=== PATIENT | female | born 1950 ===

== ENCOUNTER 2018-01-09 18:07 | Inpatient (IN) ==
[2018-01-09] MEDS ORDERED: HYDROmorphone 2 MG/1 ML VIAL IV STA (19:10)
[2018-01-09] MEDS ORDERED: ONDANSETRON 4 MG/2 ML VIAL IV STA (19:10)
[2018-01-09] MEDS ORDERED: MORPHINE 2 MG/1 ML SYRINGE IV STA (19:13)
[2018-01-09] MEDS ORDERED: ONDANSETRON 4 MG/2 ML VIAL ONE (19:59)
[2018-01-09] MEDS ORDERED: MORPHINE 2 MG/1 ML SYRINGE ONE (19:59)
[2018-01-09] MEDS ORDERED: HYDROmorphone 2 MG/1 ML VIAL IV PRN (20:18)
[2018-01-09] MEDS ORDERED: ONDANSETRON 4 MG/2 ML VIAL IV PRN (20:19)
[2018-01-09] MEDS ORDERED: SODIUM CHLORIDE 0.45% 1,000 ML IV SCH (20:30)
[2018-01-09] MEDS ORDERED: GLUCAGON 1 MG VIAL IM PRN (20:52)
[2018-01-09] MEDS ORDERED: DEXTROSE 50% 25 GM/50 ML VIAL IV PRN (20:52)
[2018-01-09] MEDS: SODIUM CHLORIDE 0.45% 1,000 ML IV SCH (22:19)
[2018-01-09] MEDS: INSULIN REGULAR 100 UNIT/ML SUBCUT SCH (22:20)
[2018-01-09] MEDS: PIPERACILLIN/TAZOBACTAM 3,375 MG in SODIUM CHLORIDE 0.9% 100 ML IV SCH (22:24)
[2018-01-09 23:17] LABS: Basophils % 0.1 % (0.0-0.8); Hemoglobin 12.4 GM/DL (12.0-16.0); Immature Granulocytes % 0.4 %; Immature Granulocytes Absolute 0.03 #; Lymphocytes # 1.3 10*3/uL (1.4-4.0); Lymphocytes % 15.9 % (21.3-54.2); Mean Corpuscular HGB Conc 33.5 GM/DL (32-36); Mean Corpuscular Hemoglobin 27 PG (27-34); Mean Corpuscular Volume 81.7 FL (87-102); Mean Platelet Volume 10.4 FL (9.6-12.0); Monocytes # 0.4 10*3/uL (0.11-0.8); Monocytes % 5.5 % (1.7-12.7); Neutrophils # 6.1 10*3/uL (1.4-7.4); Neutrophils % 78.1 % (38.7-73.9); Platelet Count 159 T/CUMM (130-400); Red Blood Count 4.53 MC/CUMM (3.8-5.5); Red Cell Distribution Width 13.6 % (9.3-17.3); White Blood Count 7.9 T/CUMM (4-12)
[2018-01-10] MEDS: PIPERACILLIN/TAZOBACTAM 3,375 MG in SODIUM CHLORIDE 0.9% 100 ML IV SCH ×3 (05:46→23:59)
[2018-01-10 06:45] LABS: Basophils % 0.2 % (0.0-0.8); Eosinophils % 0.2 % (0.00-10.9); Hematocrit 37.1 VOL% (35.7-47.0); Immature Granulocytes % 0.6 %; Immature Granulocytes Absolute 0.04 #; Lymphocytes # 1.3 10*3/uL (1.4-4.0); Lymphocytes % 19.1 % (21.3-54.2); Mean Corpuscular HGB Conc 32.3 GM/DL (32-36); Mean Corpuscular Hemoglobin 27 PG (27-34); Mean Corpuscular Volume 83.9 FL (87-102); Mean Platelet Volume 10.3 FL (9.6-12.0); Monocytes # 0.4 10*3/uL (0.11-0.8); Monocytes % 5.6 % (1.7-12.7); Neutrophils # 4.9 10*3/uL (1.4-7.4); Neutrophils % 74.3 % (38.7-73.9); Platelet Count 145 T/CUMM (130-400); Red Blood Count 4.42 MC/CUMM (3.8-5.5); Red Cell Distribution Width 13.6 % (9.3-17.3); White Blood Count 6.6 T/CUMM (4-12)
[2018-01-10 07:24] LABS: Albumin 3.1 G/DL (3.4-5.0); Bilirubin,Total 1.7 MG/DL (0.2-1.0); Calcium 8.3 MG/DL (8.5-10.1); Osmolality,Calculated 286.8 MOS/KG (273-304); Potassium 3.2 MMOL/L (3.5-5.1); Risk Ratio 2.78; Total Protein 6.4 G/DL (6.4-8.3); VLDL CHOLESTEROL 12.4 MG/DL
[2018-01-10] MEDS: INSULIN REGULAR 100 UNIT/ML SUBCUT SCH ×4 (08:39→22:25)
[2018-01-10] MEDS: CALCIUM (CARBONATE)/VITAMIN D 600 MG-400 UNIT TABLET PO SCH ×2 (09:22→21:59)
[2018-01-10] MEDS: ASPIRIN EC 81 MG TABLET PO SCH (09:22)
[2018-01-10] MEDS: CARVEDILOL 6.25 MG TABLET PO SCH ×2 (09:22→21:59)
[2018-01-10] MEDS: LOSARTAN 25 MG TABLET PO SCH (09:23)
[2018-01-10] MEDS: GABAPENTIN 100 MG CAPSULE PO SCH ×3 (09:23→21:59)
[2018-01-10 09:24] LABS: Troponin I Only < 0.015 NG/ML (0.00-0.045)
[2018-01-10] MEDS: ENOXAPARIN 40 MG/0.4 ML SYRINGE SUBCUT SCH (09:27)
[2018-01-10] MEDS: PANTOPRAZOLE 40 MG VIAL IV SCH (09:28)
[2018-01-10] MEDS: FUROSEMIDE 40 MG/4 ML VIAL IV SCH (09:28)
[2018-01-10] MEDS: POTASSIUM CHLORIDE 20 MEQ TABLET PO PRN ×4 (09:41→16:32)
[2018-01-10] MEDS: SIMVASTATIN 10 MG TABLET PO SCH (21:59)
[2018-01-11 05:33] LABS: Basophils % 0.2 % (0.0-0.8); Eosinophils % 0.7 % (0.00-10.9); Hematocrit 34.5 VOL% (35.7-47.0); Hemoglobin 11.2 GM/DL (12.0-16.0); Immature Granulocytes % 0.4 %; Immature Granulocytes Absolute 0.02 #; Lymphocytes # 1.2 10*3/uL (1.4-4.0); Lymphocytes % 22.4 % (21.3-54.2); Mean Corpuscular HGB Conc 32.5 GM/DL (32-36); Mean Corpuscular Hemoglobin 28 PG (27-34); Mean Platelet Volume 10.6 FL (9.6-12.0); Monocytes # 0.4 10*3/uL (0.11-0.8); Monocytes % 6.9 % (1.7-12.7); Neutrophils # 3.7 10*3/uL (1.4-7.4); Neutrophils % 69.4 % (38.7-73.9); Platelet Count 138 T/CUMM (130-400); Red Blood Count 4.06 MC/CUMM (3.8-5.5); Red Cell Distribution Width 13.5 % (9.3-17.3); White Blood Count 5.4 T/CUMM (4-12)
[2018-01-11 06:05] LABS: Albumin 2.7 G/DL (3.4-5.0); Calcium 8.1 MG/DL (8.5-10.1); Osmolality,Calculated 282.1 MOS/KG (273-304); Potassium 4.1 MMOL/L (3.5-5.1); Total Protein 5.7 G/DL (6.4-8.3)
[2018-01-11] MEDS: PIPERACILLIN/TAZOBACTAM 3,375 MG in SODIUM CHLORIDE 0.9% 100 ML IV SCH ×3 (06:06→22:57)
[2018-01-11] MEDS ORDERED: cefOXitin 2,000 MG in SYRINGE 1 EACH IV ONE (07:23)
[2018-01-11] MEDS: LOSARTAN 25 MG TABLET PO SCH (09:08)
[2018-01-11] MEDS: CARVEDILOL 6.25 MG TABLET PO SCH ×2 (09:10→21:48)
[2018-01-11] MEDS: PANTOPRAZOLE 40 MG VIAL IV SCH (09:11)
[2018-01-11] MEDS: ENOXAPARIN 40 MG/0.4 ML SYRINGE SUBCUT SCH (09:14)
[2018-01-11] MEDS: methIMAzole 5 MG TABLET PO SCH ×3 (09:15→21:49)
[2018-01-11] MEDS: INSULIN REGULAR 100 UNIT/ML SUBCUT SCH ×4 (09:15→21:58)
[2018-01-11] MEDS: ASPIRIN EC 81 MG TABLET PO SCH (09:15)
[2018-01-11] MEDS: GABAPENTIN 100 MG CAPSULE PO SCH ×3 (09:15→21:48)
[2018-01-11] MEDS ORDERED: LIDOCAINE 1%/EPI INJ 20 ML VIAL ONE (10:08)
[2018-01-11] MEDS ORDERED: TISSUE ADHESIVE 1 EACH APPLICATOR TOP ONE (10:08)
[2018-01-11] MEDS ORDERED: fentaNYL 100 MCG/2 ML VIAL ONE (11:55)
[2018-01-11] MEDS ORDERED: PROPOFOL 200 MG/20 ML VIAL IV ONE (11:55)
[2018-01-11] MEDS ORDERED: MIDAZOLAM 2 MG/2 ML VIAL ONE (11:55)
[2018-01-11] MEDS ORDERED: ONDANSETRON 4 MG/2 ML VIAL ONE (11:55)
[2018-01-11] MEDS ORDERED: SEVOFLURANE 1 UNIT/15 MINUTE INH ONE (11:55)
[2018-01-11] MEDS ORDERED: NEOSTIGMINE 10 MG/10 ML VIAL ONE (11:56)
[2018-01-11] MEDS ORDERED: GLYCOPYRROLATE 0.4 MG/2 ML VIAL ONE (11:56)
[2018-01-11] MEDS ORDERED: ROCURONIUM 100 MG/10 ML VIAL IV ONE (11:56)
[2018-01-11] MEDS ORDERED: MORPHINE 10 MG/1 ML VIAL ONE (12:01)
[2018-01-11] MEDS: MORPHINE 10 MG/1 ML VIAL IV PRN ×2 (12:02→12:07)
[2018-01-11] MEDS: SODIUM CHLORIDE 0.45% 1,000 ML IV SCH ×2 (16:13→16:19)
[2018-01-11] MEDS: FUROSEMIDE 40 MG/4 ML VIAL IV SCH (16:21)
[2018-01-11] MEDS: MORPHINE 2 MG/1 ML SYRINGE IV PRN ×2 (16:40→21:49)
[2018-01-11] MEDS: CALCIUM (CARBONATE)/VITAMIN D 600 MG-400 UNIT TABLET PO SCH ×2 (19:33→21:49)
[2018-01-11] MEDS: SIMVASTATIN 10 MG TABLET PO SCH (21:48)
[2018-01-12] MEDS: SODIUM CHLORIDE 0.45% 1,000 ML IV SCH ×3 (03:08→09:06)
[2018-01-12] MEDS: PIPERACILLIN/TAZOBACTAM 3,375 MG in SODIUM CHLORIDE 0.9% 100 ML IV SCH ×3 (05:06→22:33)
[2018-01-12 06:01] LABS: Basophils % 0.3 % (0.0-0.8); Eosinophils % 0.1 % (0.00-10.9); Hematocrit 34.8 VOL% (35.7-47.0); Hemoglobin 11.5 GM/DL (12.0-16.0); Immature Granulocytes % 0.3 %; Immature Granulocytes Absolute 0.02 #; Lymphocytes # 1.3 10*3/uL (1.4-4.0); Lymphocytes % 18.3 % (21.3-54.2); Mean Corpuscular Hemoglobin 28 PG (27-34); Mean Corpuscular Volume 83.9 FL (87-102); Mean Platelet Volume 10.8 FL (9.6-12.0); Monocytes # 0.6 10*3/uL (0.11-0.8); Monocytes % 8.6 % (1.7-12.7); Neutrophils # 5.1 10*3/uL (1.4-7.4); Neutrophils % 72.4 % (38.7-73.9); Platelet Count 132 T/CUMM (130-400); Red Blood Count 4.15 MC/CUMM (3.8-5.5); Red Cell Distribution Width 13.6 % (9.3-17.3)
[2018-01-12 06:07] LABS: Albumin 2.5 G/DL (3.4-5.0); Bilirubin,Total 1.7 MG/DL (0.2-1.0); Calcium 7.3 MG/DL (8.5-10.1); Osmolality,Calculated 275.7 MOS/KG (273-304); Potassium 3.8 MMOL/L (3.5-5.1); Total Protein 5.5 G/DL (6.4-8.3)
[2018-01-12 06:55] LABS: INR 1.1; PT Patient Result 11.9 SECS
[2018-01-12] MEDS: INSULIN REGULAR 100 UNIT/ML SUBCUT SCH ×4 (08:10→21:09)
[2018-01-12] MEDS: LOSARTAN 25 MG TABLET PO SCH (08:59)
[2018-01-12] MEDS: CARVEDILOL 6.25 MG TABLET PO SCH ×2 (08:59→21:16)
[2018-01-12] MEDS: PANTOPRAZOLE 40 MG VIAL IV SCH (09:00)
[2018-01-12] MEDS: FUROSEMIDE 40 MG/4 ML VIAL IV SCH (09:02)
[2018-01-12] MEDS: GABAPENTIN 100 MG CAPSULE PO SCH ×3 (09:06→21:16)
[2018-01-12] MEDS: CALCIUM (CARBONATE)/VITAMIN D 600 MG-400 UNIT TABLET PO SCH ×2 (09:06→21:16)
[2018-01-12] MEDS: ASPIRIN EC 81 MG TABLET PO SCH (09:06)
[2018-01-12] MEDS: methIMAzole 5 MG TABLET PO SCH ×3 (09:06→21:16)
[2018-01-12] MEDS: SIMVASTATIN 10 MG TABLET PO SCH (21:16)
[2018-01-13 05:41] LABS: Basophils % 0.2 % (0.0-0.8); Eosinophils % 0.7 % (0.00-10.9); Hematocrit 33.3 VOL% (35.7-47.0); Immature Granulocytes % 0.4 %; Immature Granulocytes Absolute 0.02 #; Lymphocytes # 1.4 10*3/uL (1.4-4.0); Lymphocytes % 24.1 % (21.3-54.2); Mean Corpuscular Hemoglobin 27 PG (27-34); Mean Corpuscular Volume 82.8 FL (87-102); Mean Platelet Volume 11.3 FL (9.6-12.0); Monocytes # 0.5 10*3/uL (0.11-0.8); Monocytes % 8.8 % (1.7-12.7); Neutrophils # 3.7 10*3/uL (1.4-7.4); Neutrophils % 65.8 % (38.7-73.9); Platelet Count 127 T/CUMM (130-400); Red Blood Count 4.02 MC/CUMM (3.8-5.5); Red Cell Distribution Width 13.2 % (9.3-17.3); White Blood Count 5.6 T/CUMM (4-12)
[2018-01-13] MEDS: PIPERACILLIN/TAZOBACTAM 3,375 MG in SODIUM CHLORIDE 0.9% 100 ML IV SCH ×2 (06:11→14:30)
[2018-01-13 06:29] LABS: Albumin 2.3 G/DL (3.4-5.0); Bilirubin,Total 1.5 MG/DL (0.2-1.0); Calcium 7.3 MG/DL (8.5-10.1); Osmolality,Calculated 281.1 MOS/KG (273-304); Potassium 3.6 MMOL/L (3.5-5.1); Total Protein 5.5 G/DL (6.4-8.3)
[2018-01-13] MEDS: PANTOPRAZOLE 40 MG VIAL IV SCH (08:04)
[2018-01-13] MEDS: FUROSEMIDE 40 MG/4 ML VIAL IV SCH (08:06)
[2018-01-13] MEDS: CALCIUM (CARBONATE)/VITAMIN D 600 MG-400 UNIT TABLET PO SCH (08:12)
[2018-01-13] MEDS: methIMAzole 5 MG TABLET PO SCH (08:12)
[2018-01-13] MEDS: GABAPENTIN 100 MG CAPSULE PO SCH ×2 (08:12→15:22)
[2018-01-13] MEDS: LOSARTAN 25 MG TABLET PO SCH (08:12)
[2018-01-13] MEDS: CARVEDILOL 6.25 MG TABLET PO SCH (08:13)
[2018-01-13] MEDS: ASPIRIN EC 81 MG TABLET PO SCH (08:13)
[2018-01-13] MEDS: INSULIN REGULAR 100 UNIT/ML SUBCUT SCH ×2 (08:14→11:30)
[2018-01-13] MEDS ORDERED: methIMAzole 5 MG TABLET PO SCH (10:40)
[2018-01-13 12:21] VITALS: BP 159/71
[2018-01-13] MEDS ORDERED: PROPOFOL 200 MG/20 ML VIAL IV ONE (14:50)
[2018-01-13] MEDS ORDERED: ONDANSETRON 4 MG/2 ML VIAL ONE (14:50)
[2018-01-13] MEDS ORDERED: SUCCINYLCHOLINE 200 MG/10 ML VIAL ONE (14:50)
[2018-01-13] MEDS ORDERED: LIDOCAINE 100 MG/5 ML SYRINGE ONE (14:50)
== END 2018-01-13 15:50 | disposition home or self-care (01) | DRG 417 ==
LOC: EDBD → EDUNIT# → N.ED 18:07 → N.EDINP 20:10 → N.3E 21:34
PROVIDERS: ADMIT Hospitalist; ATTEND Hospitalist
PROC: LAPCHOL (2018-01-11 10:35)
PROC: ERCPWSP (ICD-10-PCS; 2018-01-12 13:05)

== ENCOUNTER 2019-05-03 12:50 | Inpatient (IN) ==
[2019-05-03] MEDS ORDERED: cefOXitin 2,000 MG in SYRINGE 1 EACH IV ONE (13:48)
[2019-05-03] MEDS ORDERED: HYDROmorphone 2 MG/1 ML VIAL IV PRN ×2 (13:49)
[2019-05-03] MEDS ORDERED: KETOROLAC 10 MG TABLET PO PRN (13:49)
[2019-05-03] MEDS ORDERED: BISACODYL 5 MG TABLET PO PRN (13:49)
[2019-05-03] MEDS ORDERED: ACETAMINOPHEN 325 MG TABLET PO PRN (13:49)
[2019-05-03] MEDS ORDERED: GLUCAGON 1 MG VIAL IM PRN ×2 (13:52→18:19)
[2019-05-03] MEDS ORDERED: DEXTROSE 50% 25 GM/50 ML VIAL IV PRN ×2 (13:52→18:19)
[2019-05-03] MEDS ORDERED: BUPIVACAINE MPF 0.25% /EPI 30 ML VIAL ONE (15:06)
[2019-05-03] MEDS ORDERED: TISSUE ADHESIVE 1 EACH APPLICATOR TOP ONE (15:06)
[2019-05-03] MEDS ORDERED: LIDOCAINE 1%/EPI INJ 20 ML VIAL ONE (15:06)
[2019-05-03] MEDS ORDERED: DESFLURANE 1 UNIT/15 MINUTE INH ONE (17:11)
[2019-05-03] MEDS ORDERED: SUCCINYLCHOLINE 200 MG/10 ML VIAL ONE (17:12)
[2019-05-03] MEDS ORDERED: PHENYLEPHRINE 1 MG/10 ML SYRINGE IV ONE (17:12)
[2019-05-03] MEDS ORDERED: ONDANSETRON 4 MG/2 ML VIAL ONE (17:12)
[2019-05-03] MEDS ORDERED: ETOMIDATE 40 MG/20 ML VIAL IV ONE (17:12)
[2019-05-03] MEDS ORDERED: fentaNYL 100 MCG/2 ML VIAL ONE (17:12)
[2019-05-03] MEDS ORDERED: GLYCOPYRROLATE 0.4 MG/2 ML VIAL ONE (17:12)
[2019-05-03] MEDS ORDERED: ROCURONIUM 100 MG/10 ML VIAL IV ONE (17:12)
[2019-05-03] MEDS ORDERED: NEOSTIGMINE 10 MG/10 ML VIAL ONE (17:12)
[2019-05-03] MEDS ORDERED: hydrALAZINE 20 MG/1 ML VIAL IV PRN (17:36)
[2019-05-03] MEDS ORDERED: hydrALAZINE 20 MG/1 ML VIAL ONE (17:40)
[2019-05-03] MEDS: LACTATED RINGERS 1,000 ML IV SCH (17:57)
[2019-05-03] MEDS: INSULIN LISPRO 100 UNIT/ML SUBCUT SCH (18:09)
[2019-05-03 19:12] LABS: Apearance,Urine CLEAR (Clear); Bilirubin,Urine Negative (Negative); Blood, Urine Small mg/dL (Negative); Glucose,Urine (UA) >=500 mg/dL (Negative); Ketones,Urine Negative (Negative); Mucus,Urine Occasional /LPF (Occasional); Nitrite,Urine Negative (Negative); Protein,Urine 100 MG/DL; RBC,Urine 2 /HPF (0-4); Squamous Epithelial Cell,Urine Occasional /HPF (0-10); Urine Color Yellow (Yellow); Urine Urobilinogen < 2.0 EU/DL (0.2-1.0); WBC,Urine 2 /HPF (0-6)
[2019-05-03] MEDS: cefOXitin 2,000 MG in SYRINGE 1 EACH IV SCH (21:57)
[2019-05-03] MEDS: CARVEDILOL 6.25 MG TABLET PO SCH (21:57)
[2019-05-04] MEDS: LACTATED RINGERS 1,000 ML IV SCH ×4 (02:08→21:56)
[2019-05-04 04:34] LABS: Basophils % 0.1 % (0.0-0.8); Hematocrit 37.4 VOL% (35.7-47.0); Hemoglobin 11.9 GM/DL (12.0-16.0); Immature Granulocytes % 0.3 %; Immature Granulocytes Absolute 0.03 #; Lymphocytes # 1.1 10*3/uL (1.4-4.0); Lymphocytes % 12.3 % (21.3-54.2); Mean Corpuscular HGB Conc 31.8 GM/DL (32-36); Mean Corpuscular Volume 88.2 FL (87-102); Mean Platelet Volume 10.9 FL (9.6-12.0); Monocytes % 4.5 % (1.7-12.7); Neutrophils % 82.8 % (38.7-73.9); Platelet Count 108 T/CUMM (130-400); Red Blood Count 4.24 MC/CUMM (3.8-5.5); Red Cell Distribution Width 14.7 % (9.3-17.3); White Blood Count 9.2 T/CUMM (4-12)
[2019-05-04 04:57] LABS: Albumin 2.5 G/DL (3.4-5.0); Bilirubin,Total 1.4 MG/DL (0.2-1.0); Calcium 7.8 MG/DL (8.5-10.1); Osmolality,Calculated 285.1 MOS/KG (273-304); Total Protein 6.2 G/DL (6.4-8.3)
[2019-05-04] MEDS: cefOXitin 2,000 MG in SYRINGE 1 EACH IV SCH ×3 (06:53→22:00)
[2019-05-04] MEDS ORDERED: MAGNESIUM SULF RIDER 2 GM in PREMIX 1 EACH IV ONE (07:29)
[2019-05-04] MEDS: POTASSIUM CHLORIDE RIDER 10 MEQ in PREMIX 1 EACH IV SCH ×4 (08:36→13:35)
[2019-05-04] MEDS: PANTOPRAZOLE 40 MG TABLET PO SCH (08:41)
[2019-05-04] MEDS: CARVEDILOL 6.25 MG TABLET PO SCH ×2 (08:41→20:38)
[2019-05-04] MEDS: LOSARTAN 25 MG TABLET PO SCH (08:41)
[2019-05-04] MEDS: INSULIN LISPRO 100 UNIT/ML SUBCUT SCH ×3 (08:46→16:17)
[2019-05-05] MEDS: cefOXitin 2,000 MG in SYRINGE 1 EACH IV SCH ×3 (05:21→21:59)
[2019-05-05] MEDS: LACTATED RINGERS 1,000 ML IV SCH (05:23)
[2019-05-05 05:36] LABS: Calcium 8.1 MG/DL (8.5-10.1); Osmolality,Calculated 281.4 MOS/KG (273-304)
[2019-05-05 05:50] LABS: Basophils % 0.1 % (0.0-0.8); Eosinophils % 0.4 % (0.00-10.9); Hematocrit 35.8 VOL% (35.7-47.0); Hemoglobin 11.6 GM/DL (12.0-16.0); Immature Granulocytes % 0.4 %; Immature Granulocytes Absolute 0.03 #; Lymphocytes # 0.8 10*3/uL (1.4-4.0); Lymphocytes % 10.6 % (21.3-54.2); Mean Corpuscular HGB Conc 32.4 GM/DL (32-36); Mean Corpuscular Volume 87.3 FL (87-102); Mean Platelet Volume 11.2 FL (9.6-12.0); Neutrophils % 83.5 % (38.7-73.9); Platelet Count 91 T/CUMM (130-400); Red Cell Distribution Width 14.6 % (9.3-17.3); White Blood Count 7.7 T/CUMM (4-12)
[2019-05-05] MEDS: INSULIN LISPRO 100 UNIT/ML SUBCUT SCH ×3 (07:39→16:10)
[2019-05-05] MEDS: PANTOPRAZOLE 40 MG TABLET PO SCH (08:14)
[2019-05-05] MEDS: CARVEDILOL 6.25 MG TABLET PO SCH ×2 (08:14→22:00)
[2019-05-05] MEDS: LOSARTAN 25 MG TABLET PO SCH (08:14)
[2019-05-06] MEDS: ONDANSETRON 4 MG/2 ML VIAL IV PRN ×3 (03:08→15:34)
[2019-05-06] MEDS: cefOXitin 2,000 MG in SYRINGE 1 EACH IV SCH ×3 (07:49→21:40)
[2019-05-06] MEDS: INSULIN LISPRO 100 UNIT/ML SUBCUT SCH ×3 (08:00→18:44)
[2019-05-06] MEDS: LOSARTAN 25 MG TABLET PO SCH (09:25)
[2019-05-06] MEDS: PANTOPRAZOLE 40 MG TABLET PO SCH (09:25)
[2019-05-06] MEDS: CARVEDILOL 6.25 MG TABLET PO SCH ×2 (09:25→20:49)
[2019-05-06] MEDS: LACTATED RINGERS 1,000 ML IV SCH ×3 (13:02→13:15)
[2019-05-06] MEDS: DOCUSATE/SENNA 50-8.6 MG TABLET PO SCH ×2 (15:35→20:49)
[2019-05-06] MEDS: METOCLOPRAMIDE 10 MG/2 ML VIAL IV SCH ×2 (16:59→20:50)
[2019-05-06] MEDS: DEXTROSE 5% NACL 0.45% 1,000 ML IV SCH (20:50)
[2019-05-07] MEDS: LACTATED RINGERS 1,000 ML IV SCH (02:10)
[2019-05-07 05:28] LABS: Basophils % 0.3 % (0.0-0.8); Eosinophils # 0.1 10*3/uL (0.0-0.87); Hematocrit 40.4 VOL% (35.7-47.0); Hemoglobin 13.1 GM/DL (12.0-16.0); Immature Granulocytes % 0.4 %; Immature Granulocytes Absolute 0.03 #; Lymphocytes # 1.1 10*3/uL (1.4-4.0); Lymphocytes % 15.8 % (21.3-54.2); Mean Corpuscular HGB Conc 32.4 GM/DL (32-36); Mean Corpuscular Volume 86.3 FL (87-102); Mean Platelet Volume 10.3 FL (9.6-12.0); Monocytes % 11.4 % (1.7-12.7); Neutrophils % 71.1 % (38.7-73.9); Platelet Count 170 T/CUMM (130-400); Red Blood Count 4.68 MC/CUMM (3.8-5.5); White Blood Count 6.7 T/CUMM (4-12)
[2019-05-07] MEDS: DEXTROSE 5% NACL 0.45% 1,000 ML IV SCH ×3 (05:47→21:53)
[2019-05-07 05:57] LABS: Calcium 7.9 MG/DL (8.5-10.1); Osmolality,Calculated 281.7 MOS/KG (273-304)
[2019-05-07] MEDS: INSULIN LISPRO 100 UNIT/ML SUBCUT SCH ×3 (08:33→16:42)
[2019-05-07] MEDS: cefOXitin 2,000 MG in SYRINGE 1 EACH IV SCH ×3 (08:58→21:56)
[2019-05-07] MEDS: METOCLOPRAMIDE 10 MG/2 ML VIAL IV SCH ×4 (08:58→21:49)
[2019-05-07] MEDS: CARVEDILOL 6.25 MG TABLET PO SCH ×2 (09:48→21:49)
[2019-05-07] MEDS: DOCUSATE/SENNA 50-8.6 MG TABLET PO SCH ×2 (09:49→21:49)
[2019-05-07] MEDS: PANTOPRAZOLE 40 MG TABLET PO SCH (09:49)
[2019-05-07] MEDS: LOSARTAN 25 MG TABLET PO SCH (09:53)
[2019-05-08] MEDS: DEXTROSE 5% NACL 0.45% 1,000 ML IV SCH ×3 (05:53→22:35)
[2019-05-08] MEDS: cefOXitin 2,000 MG in SYRINGE 1 EACH IV SCH ×3 (07:32→22:26)
[2019-05-08] MEDS: METOCLOPRAMIDE 10 MG/2 ML VIAL IV SCH ×4 (08:29→22:23)
[2019-05-08] MEDS: INSULIN LISPRO 100 UNIT/ML SUBCUT SCH ×3 (08:32→17:12)
[2019-05-08] MEDS: PANTOPRAZOLE 40 MG TABLET PO SCH (09:49)
[2019-05-08] MEDS: CARVEDILOL 6.25 MG TABLET PO SCH ×2 (09:49→22:22)
[2019-05-08] MEDS: DOCUSATE/SENNA 50-8.6 MG TABLET PO SCH ×2 (09:50→22:22)
[2019-05-08] MEDS: LOSARTAN 25 MG TABLET PO SCH (09:50)
[2019-05-09] MEDS: DEXTROSE 5% NACL 0.45% 1,000 ML IV SCH ×3 (05:08→20:00)
[2019-05-09] MEDS: ONDANSETRON 4 MG/2 ML VIAL IV PRN (05:48)
[2019-05-09] MEDS: cefOXitin 2,000 MG in SYRINGE 1 EACH IV SCH ×3 (05:50→23:11)
[2019-05-09 06:05] LABS: Calcium 7.7 MG/DL (8.5-10.1); Osmolality,Calculated 278.4 MOS/KG (273-304); Thyroid Stimulating Hormone 0.258 uIU/ml (0.358-3.74)
[2019-05-09] MEDS: INSULIN LISPRO 100 UNIT/ML SUBCUT SCH ×3 (08:02→17:33)
[2019-05-09] MEDS: METOCLOPRAMIDE 10 MG/2 ML VIAL IV SCH ×4 (08:05→20:53)
[2019-05-09] MEDS: PANTOPRAZOLE 40 MG TABLET PO SCH (09:05)
[2019-05-09] MEDS: CARVEDILOL 6.25 MG TABLET PO SCH ×2 (09:05→20:53)
[2019-05-09] MEDS: LOSARTAN 25 MG TABLET PO SCH (09:05)
[2019-05-09] MEDS: DOCUSATE/SENNA 50-8.6 MG TABLET PO SCH ×2 (09:05→20:52)
[2019-05-09] MEDS: POTASSIUM CHLORIDE INJ 40 MEQ in SODIUM CHLORIDE 0.45% 1,000 ML IV SCH (15:01)
[2019-05-10] MEDS: DEXTROSE 5% NACL 0.45% 1,000 ML IV SCH ×2 (04:30→13:11)
[2019-05-10] MEDS: POTASSIUM CHLORIDE INJ 40 MEQ in SODIUM CHLORIDE 0.45% 1,000 ML IV SCH (05:42)
[2019-05-10 06:30] LABS: Calcium 7.9 MG/DL (8.5-10.1); Free T4 (Free Thyroxine) 1.9 NG/DL (0.76-1.46); Osmolality,Calculated 277.3 MOS/KG (273-304)
[2019-05-10] MEDS: cefOXitin 2,000 MG in SYRINGE 1 EACH IV SCH ×2 (07:00→14:58)
[2019-05-10] MEDS: INSULIN LISPRO 100 UNIT/ML SUBCUT SCH ×2 (08:42→13:12)
[2019-05-10] MEDS: METOCLOPRAMIDE 10 MG/2 ML VIAL IV SCH ×2 (08:43→11:57)
[2019-05-10] MEDS: LOSARTAN 25 MG TABLET PO SCH (08:44)
[2019-05-10] MEDS: DOCUSATE/SENNA 50-8.6 MG TABLET PO SCH (08:44)
[2019-05-10] MEDS: PANTOPRAZOLE 40 MG TABLET PO SCH (08:44)
[2019-05-10] MEDS: CARVEDILOL 6.25 MG TABLET PO SCH (08:44)
[2019-05-10] MEDS ORDERED: LOSARTAN 50 MG TABLET PO SCH (11:45)
[2019-05-10] MEDS ORDERED: methIMAzole 5 MG TABLET PO SCH (15:00)
[2019-05-10 16:08] VITALS: BP 142/76
== END 2019-05-10 17:10 | disposition home or self-care (01) | DRG 853 ==
LOC: EDUNIT# → N.ED 12:50 → N.EDINP 13:49 → N.3E 14:39 → N.CC 16:56 → N.3E 05-04 15:29
PROVIDERS: ADMIT Surgery; ATTEND Surgery

== ENCOUNTER 2022-03-27 00:36 | Inpatient (IN) ==
[2022-03-27] MEDS ORDERED: ALBUTEROL 2.5 MG/3 ML NEB RESP TX PRN (03:22)
[2022-03-27] MEDS ORDERED: SODIUM CHLORIDE 0.9% 1,000 ML IV SCH ×2 (04:00→09:30)
[2022-03-27 05:33] LABS: Basophils % 0.4 % (0.0-0.8); Eosinophils % 0.3 % (0.00-10.9); Hematocrit 36.3 VOL% (35.7-47.0); Hemoglobin 11.7 GM/DL (12.0-16.0); Immature Granulocytes % 0.5 %; Immature Granulocytes Absolute 0.04 #; Lymphocytes # 1.6 10*3/uL (1.4-4.0); Lymphocytes % 21.3 % (21.3-54.2); Mean Corpuscular HGB Conc 32.2 GM/DL (32-36); Mean Corpuscular Volume 88.3 FL (87-102); Mean Platelet Volume 10.7 FL (9.6-12.0); Monocytes # 0.5 10*3/uL (0.11-0.8); Monocytes % 6.2 % (1.7-12.7); Neutrophils % 71.3 % (38.7-73.9); Platelet Count 156 T/CUMM (130-400); Red Blood Count 4.11 MC/CUMM (3.8-5.5); White Blood Count 7.5 T/CUMM (4-12)
[2022-03-27 05:49] LABS: PT Patient Result 10.9 SECS (10.5-12.0)
[2022-03-27 06:03] LABS: Albumin 3.3 G/DL (3.4-5.0); Bilirubin,Total 0.5 MG/DL (0.20-1.00); Calcium 9.2 MG/DL (8.5-10.1); Osmolality,Calculated 289.3 MOS/KG (273-304); Potassium 4.2 MMOL/L (3.5-5.1); Thyroid Stimulating Hormone 2.44 uIU/ml (0.358-3.74); Total Protein 7.2 G/DL (6.4-8.2)
[2022-03-27] MEDS ORDERED: diphenhydrAMINE CAP 25 MG CAPSULE PO ONE (09:02)
[2022-03-27] MEDS ORDERED: DIAZEPAM 5 MG TABLET PO ONE (09:02)
[2022-03-27] MEDS ORDERED: ceFAZolin 1,000 MG VIAL IRRIG ONE (09:04)
[2022-03-27] MEDS: ASPIRIN EC 81 MG TABLET PO SCH (09:43)
[2022-03-27] MEDS ORDERED: MIDAZOLAM 2 MG/2 ML VIAL ONE ×2 (11:46→12:39)
[2022-03-27] MEDS ORDERED: fentaNYL 100 MCG/2 ML VIAL ONE (11:46)
[2022-03-27] MEDS ORDERED: HEPARIN/NACL 0.9% 2 UNITS/ML 2,000 UNIT/1,000 ML BAG IV ONE (11:46)
[2022-03-27] MEDS ORDERED: HYDROmorphone 1 MG/1 ML SYRINGE ONE (12:38)
[2022-03-27] MEDS ORDERED: ceFAZolin 1,000 MG VIAL ONE (12:39)
[2022-03-27] MEDS ORDERED: LIDOCAINE 1%/EPI INJ 20 ML VIAL ONE (12:39)
[2022-03-27] MEDS ORDERED: TISSUE ADHESIVE 1 EACH APPLICATOR TOP ONE (12:45)
[2022-03-27] MEDS ORDERED: ACETAMINOPHEN/CODEINE 300-30 MG TABLET PO PRN (13:17)
[2022-03-27] MEDS ORDERED: MORPHINE 2 MG/1 ML SYRINGE IV PRN (13:17)
[2022-03-27] MEDS ORDERED: ACETAMINOPHEN 325 MG TABLET PO PRN (13:17)
[2022-03-27] MEDS ORDERED: ONDANSETRON 4 MG/2 ML VIAL IV PRN (13:17)
[2022-03-27] MEDS ORDERED: GLUCAGON 1 MG VIAL IM PRN (14:23)
[2022-03-27] MEDS ORDERED: DEXTROSE 10% 250 ML BAG IV PRN (14:23)
[2022-03-27] MEDS: INSULIN REGULAR 100 UNIT/ML SUBCUT SCH ×2 (16:06→20:16)
[2022-03-27] MEDS ORDERED: SIMVASTATIN 10 MG TABLET PO SCH (21:00)
[2022-03-28 05:01] LABS: Basophils % 0.3 % (0.0-0.8); Eosinophils # 0.2 10*3/uL (0.0-0.87); Eosinophils % 3.3 % (0.00-10.9); Hematocrit 36.7 VOL% (35.7-47.0); Hemoglobin 11.6 GM/DL (12.0-16.0); Immature Granulocytes % 0.4 %; Immature Granulocytes Absolute 0.03 #; Lymphocytes # 1.5 10*3/uL (1.4-4.0); Lymphocytes % 21.9 % (21.3-54.2); Mean Corpuscular HGB Conc 31.6 GM/DL (32-36); Mean Corpuscular Volume 90.8 FL (87-102); Mean Platelet Volume 10.2 FL (9.6-12.0); Monocytes # 0.5 10*3/uL (0.11-0.8); Monocytes % 7.8 % (1.7-12.7); Neutrophils % 66.3 % (38.7-73.9); Platelet Count 129 T/CUMM (130-400); Red Blood Count 4.04 MC/CUMM (3.8-5.5); Red Cell Distribution Width 14.1 % (9.3-17.3); White Blood Count 6.9 T/CUMM (4-12)
[2022-03-28 05:27] LABS: Albumin 3.3 G/DL (3.4-5.0); Bilirubin,Total 0.6 MG/DL (0.20-1.00); Calcium 8.8 MG/DL (8.5-10.1); Potassium 4.2 MMOL/L (3.5-5.1); Total Protein 6.7 G/DL (6.4-8.2)
[2022-03-28] MEDS: INSULIN REGULAR 100 UNIT/ML SUBCUT SCH ×2 (07:33→11:29)
[2022-03-28] MEDS: ASPIRIN EC 81 MG TABLET PO SCH (08:00)
[2022-03-28] MEDS ORDERED: LOSARTAN 50 MG TABLET PO SCH (09:33)
== END 2022-03-28 12:46 | disposition home or self-care (01) | DRG 243 ==
LOC: N.CC 02:05 → SUATTDRO 02:05
PROVIDERS: ADMIT Internal Medicine; ATTEND Internal Medicine Cardiovascular Disease
PROC: CLCCHCL (ICD-10-PCS; 2022-03-27 11:45)